=== PATIENT | female | born 1955 | race Caucasian/White ===

== ENCOUNTER 2016-04-02 05:46 | Day surgery (SDC) | payer OTHER, BC ==
[~2016-04-02] VITALS: Ht 157.5 cm; Wt 102.1 kg
[2016-04-02 06:44] VITALS: BP 155/87; PULSE 64; TEMP 98
[2016-04-02] MEDS ORDERED: SYNTHROID0.137 MG PO (06:52)
[2016-04-02] MEDS ORDERED: CELEXA40 MG PO (06:52)
[2016-04-02] MEDS ORDERED: VITAMIND3 5000 PO (06:53)
[2016-04-02] MEDS ORDERED: PRAVACHOL 20MG20 MG PO (06:53)
[2016-04-02] MEDS ORDERED: CALCIUM CITRAT950 MG PO (06:54)
[2016-04-02] MEDS ORDERED: MOBIC15 MG PO (06:54)
[2016-04-02] MEDS ORDERED: ISTALOL 2.5 ML2.5 ML OD (06:58)
[2016-04-02] MEDS ORDERED: LUMIGAN 2.5 ML2.5 M1 OP (06:59)
[2016-04-02] MEDS ORDERED: ALKA-SELTZER HE1 TEF PO (06:59)
[2016-04-02] MEDS ORDERED: NORCO 325 MG-7.1 TAB PO (07:00)
[2016-04-02 09:20] VITALS: BP 121/71; PULSE 59
[2016-04-02 09:35] VITALS: BP 137/82; PULSE 59
[2016-04-02 09:50] VITALS: BP 146/75; PULSE 56
[2016-04-02 10:20] VITALS: BP 123/61; PULSE 58
== END 2016-04-02 10:55 | disposition home or self-care (01) ==
LOC: SDCO 05:46
DX: S92.354A Nondisplaced fracture of fifth metatarsal bone, right foot, initial encounter for closed fracture (principal); M19.90 Unspecified osteoarthritis, unspecified site; J44.9 Chronic obstructive pulmonary disease, unspecified; F32.9 Major depressive disorder, single episode, unspecified; E07.9 Disorder of thyroid, unspecified; E78.00 Pure hypercholesterolemia, unspecified; F17.200 Nicotine dependence, unspecified, uncomplicated; X50.9XXA Other and unspecified overexertion or strenuous movements or postures, initial encounter
CPT/HCPCS: C1713; J2250; J2405; J2704; J3010; J7120

== ENCOUNTER → 2020-10-03 | Outpatient (CLI) | payer OTHER ==
[~2020-10-03] MED LIST: ALKA-SELTZER HE1 TEF PO; CALCIUM CITRAT950 MG PO; CELEXA40 MG PO; ISTALOL 2.5 ML2.5 ML OD; LUMIGAN 2.5 ML2.5 M1 OP; MOBIC15 MG PO; NORCO 325 MG-7.1 TAB PO; PRAVACHOL 20MG20 MG PO; SYNTHROID0.137 MG PO; VITAMIND3 5000 PO
== END ==
LOC: COL.RAD 11:47
DX: Z12.2 Encounter for screening for malignant neoplasm of respiratory organs (principal); F17.210 Nicotine dependence, cigarettes, uncomplicated